=== PATIENT | male | born 1995 | race Caucasian/White ===

== ENCOUNTER 2017-04-11 00:22 | Emergency (ER) | payer OTHER ==
[2017-04-11 01:11] LABS: BASOPHIL % 0.5 % (0-2); PLATELET COUNT 156 x10^3mcL (130-400); RED CELL DISTRIBUTION WIDTH 13.1 % (11.5-14.5)
[2017-04-11 01:20] LABS: CALCIUM 8.9 mg/dL (8.5-10.1); CARBON DIOXIDE 26.6 mmol/L (21-32); CHLORIDE SERUM 104 mmol/L (98-107); CREATININE SERUM 0.9 mg/dL (0.7-1.3); GFR1 > 60 mL/min; GLUCOSE SERUM 109 mg/dL (74-106); POTASSIUM SERUM 3.4 mmol/L (3.5-5.1); SODIUM SERUM 141 mmol/L (136-145)
[2017-04-11 01:24] LABS: ALKALINE PHOSPHATASE 107 U/L (46-116); ALT/SGPT 96 U/L (16-63); AST/SGOT 37 U/L (15-37); BILIRUBIN TOTAL 0.27 mg/dL (0.20-1.00); CHOLESTEROL 154 mg/dL (<200); CHOLESTEROL/HDL RATIO 3.3; HDL CHOLESTEROL 46 mg/dL (40-60); LIPASE 129 IU/L (73-393); TOTAL PROTEIN, SERUM 7.6 g/dL (6.4-8.2); TRIGLYCERIDES 98 mg/dL (<150)
[2017-04-11 01:31] LABS: T3 TOTAL 1.71 ng/mL
[2017-04-11 01:38] LABS: FREE T4 1.04 ng/dL (0.76-1.46); FREE THYROXINE INDEX 2.9 ug/dL (1.4-4.5); T4(THYROXINE) 8.2 ug/dL (4.7-13.3)
[2017-04-11 03:45] VITALS: BP 121/72
== END 2017-04-11 03:45 | disposition home or self-care (01) ==
LOC: ED 00:22
PROVIDERS: Specialist
DX: R06.02 Shortness of breath (principal)
CPT/HCPCS: 83880; 84439; J7030; Q0092; Q9967

== ENCOUNTER 2017-04-14 13:05 | Emergency (ER) | payer OTHER ==
[~2017-04-14] VITALS: Ht 188 cm; Wt 99.8 kg
[2017-04-14 14:28] VITALS: BP 135/67
== END 2017-04-14 14:52 | disposition home or self-care (01) ==
LOC: ED 13:05
DX: J02.9 Acute pharyngitis, unspecified (principal); R03.0 Elevated blood-pressure reading, without diagnosis of hypertension
CPT/HCPCS: J1100; J1885; J7512